=== PATIENT | male | born 1980 | race Caucasian/White ===

== ENCOUNTER 2017-06-30 08:50 | Emergency (ER) | payer MEDICARE, OTHER ==
[2017-06-30 08:56] VITALS: BP 132/75; PULSE 87; RESP 18; TEMP 97.3
[2017-06-30] MEDS ORDERED: CYCLOBENZAPRINE 10 MG TAB PO STA (09:10)
[2017-06-30] MEDS ORDERED: traMADol 50 MG TAB PO STA (09:12)
--- NOTE | 2017-06-30 09:12 | ED ---
Back Pain HPI - General Chief Complaint: Back Pain/Injury Stated Complaint: Back pain Time Seen by Provider: 06/30/17 08:57 Source: patient, RN notes reviewed Limitations: no limitations - History of Present Illness Initial Comments: 37-year-old male presents emergency Department chief complaint of right-sided back pain. Patient states started a few days ago and has not improved. He has not tried any [id number] medications. He states that he is ALLERGIC to ibuprofen. Patient has not tried any Tylenol. Denies any bowel incontinence or bladder retention. Patient denies any lower extremity paresthesias. Patient has had some pain and rates on his right leg occasionally with no paresthesias. Patient does have a history of chronic pain and uses see Dr. Gongora in [place] was on [place], Suboxone. Patient denies any dysuria, hematuria, abdominal pain or any flank pain. - Related Data Previous Rx's Medication Instructions Recorded Cyclobenzaprine [Flexeril] 10 mg PO TID PRN #15 tab 06/30/17 predniSONE 50 mg PO DAILY #5 tab 06/30/17 traMADol HCl [Ultram] 50 mg PO Q6H PRN #14 tab 06/30/17 Allergies Allergy/AdvReac Type Severity Reaction Status Date / Time ibuprofen [From Motrin] Allergy Rash/Hives Verified 06/30/17 08:56 Penicillins Allergy Unknown Verified 06/30/17 08:56 Childhood Review of Systems ROS Statement: Those systems with pertinent positive or pertinent negative responses have been documented in the HPI. ROS Other: All systems not noted in ROS Statement are negative. Past Medical History Past Medical History: No Reported History History of Any Multi-Drug Resistant Organisms: None Reported Past Surgical History: Appendectomy, Orthopedic Surgery, Tonsillectomy Additional Past Surgical History / Comment(s): leg Past Psychological History: No Psychological Hx Reported Smoking Status: Current every day smoker Past Alcohol Use History: None Reported Past Drug Use History: Marijuana General Exam Limitations: no limitations General appearance: alert, in no apparent distress Head exam: Present: atraumatic, normocephalic, normal inspection Respiratory exam: Present: normal lung sounds bilaterally. Absent: respiratory distress, wheezes, rales, rhonchi, stridor Cardiovascular Exam: Present: regular rate, normal rhythm, normal heart sounds. Absent: systolic murmur, diastolic murmur, rubs, gallop, clicks GI/Abdominal exam: Present: soft, normal bowel sounds. Absent: distended, tenderness, guarding, rebound, rigid Extremities exam: Present: other (Lower extremity strength equal bilaterally, neurovascular intact with pedal pulses equal bilaterally) Back exam: Present: full ROM (Mild discomfort), tenderness (Right low back), paraspinal tenderness, other (Pain with right straight leg raise). Absent: CVA tenderness (R), CVA tenderness (L), vertebral tenderness Neurological exam: Present: alert, oriented X3, CN II-XII intact, reflexes normal. Absent: motor sensory deficit Skin exam: Present: warm, dry, intact, normal color. Absent: rash Course Vital Signs 06/30/17 08:53 Temperature 97.3 F L Pulse Rate 87 Respiratory 18 Rate Blood Pressure 132/75 O2 Sat by Pulse 98 Oximetry Medical Decision Making - Medical Decision Making 37-year-old male presented for low back pain. Patient has lumbar radiculopathy /sciatica. Patient will be given prednisone, Flexeril and tramadol. I did perform a MAPS on this patient which showed that he is on chronic pain medications up until february. he used to be on norco most recently has not had that filled since february. patient advised follow-up with his old primary care physician or new primary care physician. patient will not be given norco in the emergency department. patient understands this. patient does not have any red flag symptoms. he agrees to follow-up. Disposition Clinical Impression: Sciatica Disposition: HOME SELF-CARE Condition: Stable Instructions: Acute Low Back Pain (ED) Additional Instructions: Please return to the Emergency Department if symptoms worsen or any other concerns. Prescriptions: Cyclobenzaprine [Flexeril] 10 mg PO TID PRN #15 tab PRN Reason: Muscle Spasm predniSONE 50 mg PO DAILY #5 tab traMADol HCl [Ultram] 50 mg PO Q6H PRN #14 tab PRN Reason: Pain Referrals: Jewel Martin MD [REFERRING] - 1-2 days Time of Disposition: 09:11
== END 2017-06-30 09:26 | disposition home or self-care (01) ==
LOC: EC 08:50
DX: M54.41 Lumbago with sciatica, right side (principal); F17.200 Nicotine dependence, unspecified, uncomplicated; Z88.6 Allergy status to analgesic agent; Z88.0 Allergy status to penicillin; Z98.890 Other specified postprocedural states
CPT/HCPCS: 99283

== ENCOUNTER → 2017-07-11 | Outpatient (CLI) | payer MEDICARE, OTHER ==
--- NOTE | 2017-07-11 09:01 | XR ---
EXAMINATION TYPE: XR lumbar spine 2 or 3V DATE OF EXAM: 07/11/2017 COMPARISON: NONE HISTORY: 37-year-old male with back pain weeks TECHNIQUE: 3 views FINDINGS: Transitional lumbosacral segment is noted is S1. Minimal scattered endplate spondylosis suc h as a L3-L4. Vertebral body heights are preserved and alignment is maintained. Some mild disc space narrowing in the visualized lower thoracic spine as well. IMPRESSION: No vertebral compression collapse or malalignment. Scattered mild degenerative disc disease.
== END | disposition home or self-care (01) ==
LOC: RADXRMAIN 08:33
PROVIDERS: ATTEND Registered Nurse
DX: M51.36 Other intervertebral disc degeneration, lumbar region (principal)
CPT/HCPCS: 72100

== ENCOUNTER 2018-01-02 19:00 | Emergency (ER) | payer MEDICARE, OTHER ==
[2018-01-02] MEDS ORDERED: ONDANSETRON ODT 8 MG TAB.RAPDIS PO STA (20:32)
[2018-01-02] MEDS ORDERED: SODIUM CHLORIDE 0.9% 1,000 ML IV STA (20:32)
[2018-01-02] MEDS ORDERED: DICYCLOMINE 10 MG/ML 2 ML AMP IM STA (20:32)
--- NOTE | 2018-01-02 20:41 | ED ---
Abdominal Pain HPI - General Chief Complaint: Abdominal Pain Stated Complaint: abd pain Time Seen by Provider: 01/02/18 20:23 Source: patient Mode of arrival: ambulatory Limitations: no limitations - History of Present Illness Initial Comments: Edmundo is a 37-year-old gentleman who presents the emergency department today via private vehicle for evaluation of 8 days of abdominal pain. Patient reports that he has had abdominal pain intermittently throughout his life. He does report that he is admitted to the hospital once for a bowel obstruction, he does state that he had an exploratory laparoscopy but that his obstruction resolved and there was no bowel removal at that time. Patient reports that he has never followed with GI or had an endoscopy or colonoscopy. Patient reports that over the past 8 days he's had progressively worsening nausea, heartburn and abdominal discomfort. Comfort is diffuse throughout his abdomen, worse with eating or having a bowel movement or elevation. Pain is associated with nausea, decreased appetite but no vomiting or diarrhea. He reports that his bowel movements have been firm and painful to have bowel movements. He reports that he is drinks 4 bottles of Pepto-Bismol in the past 8 days. - Related Data Home Medications Medication Instructions Recorded Confirmed Acetaminophen [Tylenol] 1,000 mg PO Q4-6H PRN 01/02/18 01/02/18 Buprenorphine HCl [Subutex] 8 mg SL BID 01/02/18 01/02/18 Previous Rx's Medication Instructions Recorded Pantoprazole Sodium [Protonix] 20 mg PO BID #30 tablet. 01/02/18 Sucralfate [Carafate] 1 gm PO ACHS #1 bottle 01/02/18 Allergies Allergy/AdvReac Type Severity Reaction Status Date / Time ibuprofen [From Motrin] Allergy Rash/Hives Verified 01/02/18 20:52 Penicillins Allergy Unknown Verified 01/02/18 20:52 Childhood haloperidol [From Haldol] AdvReac Unknown Verified 01/02/18 20:52 Review of Systems ROS Statement: Those systems with pertinent positive or pertinent negative responses have been documented in the HPI. ROS Other: All systems not noted in ROS Statement are negative. Past Medical History Past Medical History: No Reported History Additional Past Medical History / Comment(s): SBO History of Any Multi-Drug Resistant Organisms: None Reported Past Surgical History: Appendectomy, Orthopedic Surgery, Tonsillectomy Additional Past Surgical History / Comment(s): leg, Ex-Lap for SBO Past Psychological History: No Psychological Hx Reported Smoking Status: Current every day smoker Past Alcohol Use History: None Reported Past Drug Use History: Marijuana General Exam - General Exam Comments Initial Comments: GENERAL: Patient is well-developed and well-nourished. Appears dehydrated HENT: Normocephalic, Atraumatic. Neck is soft and supple. No significant lymphadenopathy is noted. Oropharynx is clear. Moist mucous membranes. Neck has full range of motion without eliciting any pain. EYES: The sclera were anicteric and conjunctiva were pink and moist. Extraocular movements were intact and pupils were equal round and reactive to light. Eyelids were unremarkable. PULMONARY: Unlabored respirations. Good breath sounds bilaterally. No audible rales rhonchi or wheezing was noted. CARDIOVASCULAR: There is a regular rate and rhythm without any murmurs gallops or rubs. ABDOMEN: Soft Mild tenderness to palpation diffusely, no guarding, not peritoneal SKIN: Skin is clear with no lesions or rashes and otherwise unremarkable. NEUROLOGIC: Patient is alert and oriented x3. Cranial nerves II through XII are grossly intact. Motor and sensory are also intact. Normal speech, volume and content. Symmetrical smile. MUSCULOSKELETAL: Normal extremities with adequate strength and full range of motion. No lower extremity swelling or edema. No calf tenderness. LYMPHATICS: No significant lymphadenopathy is noted PSYCHIATRIC: Normal psychiatric evaluation. Limitations: no limitations Limitations: no limitations Course Vital Signs 01/02/18 19:16 Temperature 98.5 F Pulse Rate 94 Respiratory 16 Rate Blood Pressure 125/75 O2 Sat by Pulse 93 L Oximetry - Reevaluation(s) Reevaluation #1: The patient was reevaluated, patient was sleeping and had to be woken to discuss results he reports no improvement in his abdominal pain and states he feels that he needs Ultram or pain pill for his pain 01/02/18 22:23 Medical Decision Making - Medical Decision Making The patient was seen and evaluated, history was obtained from the patient patient with a history of appendectomy in the past, small bowel obstruction with an exploratory laparoscopy in the past, also been told he has diverticulosis presenting with 8 days of abdominal pain, nausea, acid reflux like symptoms, constipation Labs and imaging were ordered Zofran, Bentyl and IV fluids were ordered Labs with no significant abnormalities CT scan with no significant abnormalities Patient was reevaluated after workup, patient was sleeping. I woke the patient up and discussed his results with him. I advised the patient that he needs to start taking a PPI and Carafate and follow up with GI. Patient reports he's been told multiple times the past and he needs to be evaluated by GI but never has. At this time the patient is agreeable to follow up with gastroenterology. Resting a prescription for Ultram for his chronic abdominal pain. I advised him that because one of his complaints is constipation that I do not feel Ultram would benefit him and instead recommended the PPI, Carafate, hydration and dietary modification. All questions pertaining to care were answered to the best of my ability and the patient was discharged home in stable condition. - Lab Data Result diagrams: 01/02/18 20:55 01/02/18 21:07 Lab Results 01/02/18 01/02/18 01/02/18 Range/Units 20:55 21:07 21:07 WBC 8.9 (3.8-10.6) k/uL RBC 5.15 (4.30-5.90) m/uL Hgb 15.6 (13.0-17.5) gm/dL Hct 45.4 (39.0-53.0) % MCV 88.3 (80.0-100.0) fL MCH 30.3 (25.0-35.0) pg MCHC 34.3 (31.0-37.0) g/dL RDW 13.0 (11.5-15.5) % Plt Count 234 (150-450) k/uL Neutrophils % 65 % Lymphocytes % 28 % Monocytes % 4 % Eosinophils % 2 % Basophils % 0 % Neutrophils # 5.8 (1.3-7.7) k/uL Lymphocytes # 2.5 (1.0-4.8) k/uL Monocytes # 0.3 (0-1.0) k/uL Eosinophils # 0.1 (0-0.7) k/uL Basophils # 0.0 (0-0.2) k/uL Sodium 139 (137-145) mmol/L Potassium 4.3 (3.5-5.1) mmol/L Chloride 105 (98-107) mmol/L Carbon Dioxide 26 (22-30) mmol/L Anion Gap 8 mmol/L BUN 9 (9-20) mg/dL Creatinine 0.62 L (0.66-1.25) mg/dL Est GFR (CKD-EPI)AfAm >90 (>60 ml/min/1.73 sqM) Est GFR (CKD-EPI)NonAf >90 (>60 ml/min/1.73 sqM) Glucose 95 (74-99) mg/dL Calcium 9.8 (8.4-10.2) mg/dL Total Bilirubin 0.3 (0.2-1.3) mg/dL AST 27 (17-59) U/L ALT 21 (21-72) U/L Alkaline Phosphatase 74 (38-126) U/L Total Protein 7.6 (6.3-8.2) g/dL Albumin 4.4 (3.5-5.0) g/dL Lipase 24 (23-300) U/L Urine Color Light Yellow Urine Appearance Clear (Clear) Urine pH 7.0 (5.0-8.0) Ur Specific [place] 1.008 (1.001-1.035) Urine Protein Negative (Negative) Urine Glucose (UA) Negative (Negative) Urine Ketones Negative (Negative) Urine Blood Negative (Negative) Urine Nitrite Negative (Negative) Urine Bilirubin Negative (Negative) Urine Urobilinogen <2.0 (<2.0) mg/dL Ur Leukocyte Esterase Negative (Negative) Disposition Clinical Impression: Abdominal pain Disposition: HOME SELF-CARE Instructions: Abdominal Pain (ED) Prescriptions: Pantoprazole Sodium [Protonix] 20 mg PO BID #30 tablet. Sucralfate [Carafate] 1 gm PO ACHS #1 bottle Is patient prescribed a controlled substance at d/c from ED?: No Referrals: Gonzales Chamberlain MD [Primary Care Provider] - 1-2 days Coral Velazquez MD [STAFF PHYSICIAN] - 1-2 days
[2018-01-02 21:23] LABS: Basophils % (A) 0 %; Eosinophils # (A) 0.1 k/uL (0-0.7); Eosinophils % (A) 2 %; HCT 45.4 % (39.0-53.0); HGB 15.6 gm/dL (13.0-17.5); Lymphocytes # (A) 2.5 k/uL (1.0-4.8); Lymphocytes % (A) 28 %; MCH 30.3 pg (25.0-35.0); MCHC 34.3 g/dL (31.0-37.0); MCV 88.3 fL (80.0-100.0); Mean Platelet Volume 6.9; Monocytes # (A) 0.3 k/uL (0-1.0); Monocytes % (A) 4 %; Neutrophils # (A) 5.8 k/uL (1.3-7.7); Neutrophils % (A) 65 %; Platelet Count 234 k/uL (150-450); RBC 5.15 m/uL (4.30-5.90); WBC 8.9 k/uL (3.8-10.6)
[2018-01-02 21:23] LABS: Appearance,Urine Clear (Clear); Bilirubin,Urine Negative (Negative); Blood,Urine Negative (Negative); Color,Urine Light Yellow; Glucose,Urine (UA) Negative (Negative); Ketones,Urine Negative (Negative); Leukocyte Esterase,Urine Negative (Negative); Nitrite,Urine Negative (Negative); Protein,Urine Negative (Negative); Specific Gravity,Urine 1.008 (1.001-1.035); Urobilinogen,Urine <2.0 mg/dL (<2.0)
[2018-01-02 21:31] LABS: ALT 21 U/L (21-72); AST 27 U/L (17-59); Albumin 4.4 g/dL (3.5-5.0); Alkaline Phosphatase 74 U/L (38-126); Anion Gap 8 mmol/L; Blood Urea Nitrogen 9 mg/dL (9-20); Calcium 9.8 mg/dL (8.4-10.2); Carbon Dioxide 26 mmol/L (22-30); Chloride 105 mmol/L (98-107); Glucose 95 mg/dL (74-99); Lipase 24 U/L (23-300); Potassium 4.3 mmol/L (3.5-5.1); Sodium 139 mmol/L (137-145); Total Bilirubin 0.3 mg/dL (0.2-1.3); Total Protein 7.6 g/dL (6.3-8.2)
--- NOTE | 2018-01-02 21:53 | CT ---
EXAMINATION TYPE: CT abdomen pelvis w con DATE OF EXAM: 01/02/2018 COMPARISON: HISTORY: abdominal pain and constipation X [address] DLP: 1259.9 mGycm Automated exposure control for dose reduction was used. TECHNIQUE: Helical acquisition of images was performed from the lung bases through the pelvis. CONTRAST: Performed without Oral Contrast and with IV Contrast, patient injected with 100 mL of Isovue 300. FINDINGS: Lung bases are clear. There is no pleural effusion. There is subsegmental atelectasis at the right vincent ng base. There is no pericardial effusion. Heart size is normal. Liver spleen pancreas gallbladder appear normal. Bile ducts are not dilated. There is no adrenal mass . Kidneys show satisfactory contrast opacification. There is no hydronephrosis. There is no retroperi toneal adenopathy or edema. There is no mesenteric adenopathy or edema. Ureters are not dilated. Bladder distends smoothly. I see no intestinal wall thickening. There are no dilated loops. Appendix is not definitely seen. There is no sign of appendicitis. There is no ascites or free air. There is no inguinal hernia. The lumbar spine is intact. Bony pelvis is intact. IMPRESSION: MILD SUBSEGMENTAL ATELECTASIS AT THE RIGHT LUNG BASE. NO SIGN OF ACUTE ABDOMEN AND PELVIS. NO EVIDENC E OF CONSTIPATION. I DO NOT SEE A CAUSE FOR ABDOMINAL PAIN.
[2018-01-02 22:47] VITALS: BP 186/97; PULSE 74; RESP 18; TEMP 97.8
== END 2018-01-02 22:47 | disposition home or self-care (01) ==
LOC: EC 19:00
DX: R10.84 Generalized abdominal pain (principal); E86.0 Dehydration; K59.00 Constipation, unspecified; R11.0 Nausea; R12 Heartburn; R63.8 Other symptoms and signs concerning food and fluid intake; F17.200 Nicotine dependence, unspecified, uncomplicated; Z88.0 Allergy status to penicillin; Z88.6 Allergy status to analgesic agent; Z88.8 Allergy status to other drugs, medicaments and biological substances; Z79.899 Other long term (current) drug therapy; Z90.49 Acquired absence of other specified parts of digestive tract; Z53.20 Procedure and treatment not carried out because of patient's decision for unspecified reasons
CPT/HCPCS: 36415; 80053; 83690; 85025; 81003; 74177; 99284; 96360; 96361; Q9967

== ENCOUNTER 2018-09-02 16:10 | Inpatient (IN) | payer MEDICARE, OTHER ==
[2018-09-02] MEDS ORDERED: ONDANSETRON 4 MG/2 ML VIAL IVP STA (16:34)
[2018-09-02] MEDS ORDERED: MORPHINE SULFATE 2 MG/ML SYRINGE IVP STA (16:34)
[2018-09-02] MEDS ORDERED: HEPARIN SODIUM,PORCINE 5,000 UNIT/ML 1 ML VIAL IV PRN (16:40)
[2018-09-02] MEDS ORDERED: HEPARIN SODIUM,PORCINE 5,000 UNIT/ML 1 ML VIAL IV ONE (16:40)
[2018-09-02] MEDS: NITROGLYCERIN SL TABS 0.4 MG TAB SUBLINGUAL STA (16:43)
[2018-09-02] MEDS ORDERED: HEPARIN SOD,PORK IN 0.45% NACL 25,000 UNIT in 0.45% NACL 1 250ML.BAG IV SCH (16:45)
[2018-09-02] MEDS ORDERED: ATORVASTATIN 80 MG TAB PO STA (16:46)
[2018-09-02] MEDS ORDERED: METOPROLOL TARTRATE 25 MG TAB PO STA (16:46)
[2018-09-02] MEDS ORDERED: NALOXONE 0.4 MG/ML 1 ML VIAL IV PRN (16:49)
--- NOTE | 2018-09-02 16:55 | ED ---
General Adult HPI - General Chief complaint: Chest Pain Stated complaint: CHEST PAIN Time Seen by Provider: 09/02/18 16:21 Source: patient, RN notes reviewed, old records reviewed Mode of arrival: EMS Limitations: no limitations - History of Present Illness Initial comments: 48-year-old male presenting with one hour history of substernal chest pain. Owen valenzuela is a poor historian, flat affect. He does admit to radiation to his right jaw. No back pain. Pain was significant and severe at the time of onset. Pain began at rest. Patient has no personal history of CAD. He has a smoker. He has family history of coronary artery disease. He is a nondiabetic. No history of hypertension. Patient states he had some nausea and indigestion associated with his symptoms. - Related Data Home Medications Medication Instructions Recorded Confirmed Buprenorphine HCl [Subutex] 8 mg SL BID 01/02/18 09/02/18 Famotidine [Pepcid] 20 mg PO DAILY 09/02/18 09/02/18 PARoxetine HCL [Paxil] 40 mg PO DAILY 09/02/18 09/02/18 Allergies Allergy/AdvReac Type Severity Reaction Status Date / Time ibuprofen [From Motrin] Allergy Rash/Hives Verified 09/02/18 16:56 Penicillins Allergy Unknown Verified 09/02/18 16:56 Childhood haloperidol [From Haldol] AdvReac Unknown Verified 09/02/18 16:56 Review of Systems ROS Statement: Those systems with pertinent positive or pertinent negative responses have been documented in the HPI. ROS Other: All systems not noted in ROS Statement are negative. Past Medical History Past Medical History: No Reported History Additional Past Medical History / Comment(s): SBO History of Any Multi-Drug Resistant Organisms: None Reported Past Surgical History: Appendectomy, Orthopedic Surgery, Tonsillectomy Additional Past Surgical History / Comment(s): leg, Ex-Lap for SBO Past Psychological History: No Psychological Hx Reported Smoking Status: Current every day smoker Past Alcohol Use History: None Reported Past Drug Use History: Marijuana General Exam Limitations: no limitations General appearance: lethargic Head exam: Present: atraumatic, normocephalic Eye exam: Present: normal appearance ENT exam: Present: normal exam Neck exam: Present: normal inspection. Absent: tenderness, meningismus Respiratory exam: Present: normal lung sounds bilaterally. Absent: respiratory distress Cardiovascular Exam: Present: regular rate, normal rhythm GI/Abdominal exam: Present: soft. Absent: distended, tenderness Extremities exam: Present: normal inspection, normal capillary refill. 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 Ramirez , will evaluate the patient in the emergency department. Likely urgent heart catheterization. EKG Findings - EKG Comments: EKG Findings:: EKG: Normal sinus rhythm, ST segment depression and T-wave inv ersion throughout the precordial leads. No ST segment elevation. Rate of 96, IA interval 128, QRS duration 102, QTC 444 Medical Decision Making - Medical Decision Making 38-year-old male with anterior chest pain. Pain is typical features. Initial evaluation patient is pale and looks unwell. He is stable vital signs. EKG is concerning with ST segment depression and T-wave inversions in the precordial leads. I did discuss case Is cardiology. He was given aspirin, Lipitor, nitroglycerin, morphine, and initiated on heparin. He will be taken urgently to the [facility] for heart catheterization. Case discussed with the admitting physician Dr. Chicas. - Lab Data Result diagrams: 09/02/18 16:47 09/02/18 16:47 Lab Results 09/02/18 09/02/18 09/02/18 Range/Units 16:47 16:47 16:47 WBC 7.7 (3.8-10.6) k/uL RBC 5.25 (4.30-5.90) m/uL Hgb 16.1 (13.0-17.5) gm/dL Hct 46.3 (39.0-53.0) % MCV 88.2 (80.0-100.0) fL MCH 30.6 (25.0-35.0) pg MCHC 34.7 (31.0-37.0) g/dL RDW 13.4 (11.5-15.5) % Plt Count 272 (150-450) k/uL Neutrophils % 48 % Lymphocytes % 43 % Monocytes % 3 % Eosinophils % 3 % Basophils % 1 % Neutrophils # 3.7 (1.3-7.7) k/uL Lymphocytes # 3.3 (1.0-4.8) k/uL Monocytes # 0.2 (0-1.0) k/uL Eosinophils # 0.3 (0-0.7) k/uL Basophils # 0.1 (0-0.2) k/uL PT 9.8 (9.0-12.0) sec INR 0.9 (<1.2) APTT 27.2 (22.0-30.0) sec Sodium 140 (137-145) mmol/L Potassium 3.7 (3.5-5.1) mmol/L Chloride 103 (98-107) mmol/L Carbon Dioxide 28 (22-30) mmol/L Anion Gap 9 mmol/L BUN 14 (9-20) mg/dL Creatinine 0.72 (0.66-1.25) mg/dL Est GFR (CKD-EPI)AfAm >90 (>60 ml/min/1.73 sqM) Est GFR (CKD-EPI)NonAf >90 (>60 ml/min/1.73 sqM) Glucose 108 H (74-99) mg/dL Calcium 9.7 (8.4-10.2) mg/dL Magnesium 1.9 (1.6-2.3) mg/dL Total Bilirubin 0.3 (0.2-1.3) mg/dL AST 18 (17-59) U/L ALT 15 L (21-72) U/L Alkaline Phosphatase 116 (38-126) U/L Total Protein 7.9 (6.3-8.2) g/dL Albumin 4.6 (3.5-5.0) g/dL Lipase 19 L (23-300) U/L Critical Care Time Critical Care Time: Yes Total Critical Care Time: 35 Disposition Clinical Impression: Chest pain, Unstable angina pectoris Disposition: ADMITTED IP TO THIS [facility] Condition: Serious Is patient prescribed a controlled substance at d/c from ED?: No Referrals: Gonzales Chamberlain MD [Primary Care Provider] - 1-2 days Decision to Admit Reason: Admit from EC Decision Date: 09/02/18 Decision Time: 17:15
[2018-09-02 16:59] LABS: Basophils # (A) 0.1 k/uL (0-0.2); Basophils % (A) 1 %; Eosinophils # (A) 0.3 k/uL (0-0.7); Eosinophils % (A) 3 %; HCT 46.3 % (39.0-53.0); HGB 16.1 gm/dL (13.0-17.5); Lymphocytes # (A) 3.3 k/uL (1.0-4.8); Lymphocytes % (A) 43 %; MCH 30.6 pg (25.0-35.0); MCHC 34.7 g/dL (31.0-37.0); MCV 88.2 fL (80.0-100.0); Mean Platelet Volume 6.8; Monocytes # (A) 0.2 k/uL (0-1.0); Monocytes % (A) 3 %; Neutrophils # (A) 3.7 k/uL (1.3-7.7); Neutrophils % (A) 48 %; Platelet Count 272 k/uL (150-450); RBC 5.25 m/uL (4.30-5.90); RDW 13.4 % (11.5-15.5); WBC 7.7 k/uL (3.8-10.6)
[2018-09-02] MEDS: SODIUM CHLORIDE 0.9% 1,000 ML IV SCH (17:05)
[2018-09-02 17:10] LABS: ALT 15 U/L (21-72); AST 18 U/L (17-59); African American GFR (CKD) >90 (>60 ml/min/1.73 sqM); Albumin 4.6 g/dL (3.5-5.0); Alkaline Phosphatase 116 U/L (38-126); Anion Gap 9 mmol/L; Blood Urea Nitrogen 14 mg/dL (9-20); Calcium 9.7 mg/dL (8.4-10.2); Carbon Dioxide 28 mmol/L (22-30); Chloride 103 mmol/L (98-107); Glucose 108 mg/dL (74-99); Lipase 19 U/L (23-300); Magnesium 1.9 mg/dL (1.6-2.3); Potassium 3.7 mmol/L (3.5-5.1); Sodium 140 mmol/L (137-145); Total Bilirubin 0.3 mg/dL (0.2-1.3); Total Protein 7.9 g/dL (6.3-8.2)
[2018-09-02 17:11] LABS: INR 0.9 (<1.2); Partial Thromboplastin Time 27.2 sec (22.0-30.0); Prothrombin Time 9.8 sec (9.0-12.0)
[2018-09-02] MEDS ORDERED: SODIUM CHLORIDE 0.9% 1,000 ML IV ONE (17:27)
--- NOTE | 2018-09-02 17:31 | P.CRDCN ---
History of Present Illness History of present illness: Dr. Brooks dictating the cardiac consultation the patient and her mother ms 38-year-old male patient who presented to the emergency room complaining of heaviness and pressure in the left chest that started about 1:30 PM this afternoon Since this morning the patient has not felt well. He took the trash out and 39 was almost short of breath than usual About 1:30 was sitting watching television when he started experiencing discomfort in his chest. This was quite uncomfortable sensation, with pressure and heaviness and sweatiness No dizziness no palpitations no loss of consciousness He has never experienced such symptoms before Past medical history none. Diabetes hypertension no known dyslipidemia Social history. He is a current smoker Home medications axilla Pepcid andsubutex Review of systems: No fever chills or rigors, no cough, phlegm or expectoration, no nausea, vomiting or diarrhea, no hematuria, dysuria, no musculoskeletal complaints, no strokes or seizures, no skin lesions. He's had surgeries review some injuries in the past Family history: His father had heart disease that developed in his mid 50s. The patient's siblings are all normal no specific cardiac conditions known On examination he is resting comfortably in bed. After nitroglycerin he feels a lot better he is already received IV heparin aspirin statins and metoprolol by mouth Pulse rate in the 80s and 90s, afebrile 98.5F blood pressure 140/82 mmHg pulse ox 99% No JVD Abdomen is nontender soft 70s warm no edema Breath sounds are clear no rhonchi or crackles Heart sounds are normal normal S1 normal S2 no murmurs gallop or rub Twelve-lead ECG shows sinus rhythm with 0.[address] depression with T-wave inversions ACROSS the precordial leads No old ECG for comparison Labs are reviewed Hemoglobin 16.1, potassium 3.7, sodium 140, normal kidney function, normal renal function normal lipase Impression Chest discomfort that began at rest consistent with unstable angina Abnormal ECG with 0.[address] depression with T-wave inversions ACROSS THE PRECORDIAL LEADS, ACUTE CORONARY SYNDROME CHEST DISCOMFORT WAS ONGOING ALTHOUGH IT DID GET BETTER AFTER ADMINISTRATION OF NITROGLYCERIN CURRENT SMOKER NO OTHER RISK FACTORS FOR CORONARY ARTERY DISEASE SUGGEST TOX SCREEN LIPID PANEL CORONARY ANGIOGRAPHY TODAY AND I DISCUSSED THIS WITH DR. VILLALOBOS FURTHER MANAGEMENT THEREAFTER DISCUSSED WITH THE PATIENT IS AGREEABLE PLAN Past Medical History Past Medical History: No Reported History Additional Past Medical History / Comment(s): SBO History of Any Multi-Drug Resistant Organisms: None Reported Past Surgical History: Appendectomy, Orthopedic Surgery, Tonsillectomy Additional Past Surgical History / Comment(s): leg, Ex-Lap for SBO Past Psychological History: No Psychological Hx Reported Smoking Status: Current every day smoker Past Alcohol Use History: None Reported Past Drug Use History: Marijuana Medications and Allergies Home Medications Medication Instructions Recorded Confirmed Type Buprenorphine HCl [Subutex] 8 mg SL BID 01/02/18 09/02/18 History Famotidine [Pepcid] 20 mg PO DAILY 09/02/18 09/02/18 History PARoxetine HCL [Paxil] 40 mg PO DAILY 09/02/18 09/02/18 History Allergies Allergy/AdvReac Type Severity Reaction Status Date / Time ibuprofen [From Motrin] Allergy Rash/Hives Verified 09/02/18 16:56 Penicillins Allergy Unknown Verified 09/02/18 16:56 Childhood haloperidol [From Haldol] AdvReac Unknown Verified 09/02/18 16:56 Physical Exam Vitals: Vital Signs Temp Pulse Pulse Resp BP Pulse Ox 09/02/18 16:25 95 09/02/18 16:14 98.5 F 95 16 140/82 99 Intake and Output 09/02/18 09/02/18 09/02/18 06:59 14:59 22:59 Other: Weight 95.254 kg Results 09/02/18 16:47 09/02/18 16:47 Cardiac Enzymes 09/02/18 09/02/18 Range/Units 16:47 16:47 AST 18 (17-59) U/L Troponin I <0.012 (0.000-0.034) ng/mL Coagulation 09/02/18 Range/Units 16:47 PT 9.8 (9.0-12.0) sec APTT 27.2 (22.0-30.0) sec CBC 09/02/18 Range/Units 16:47 WBC 7.7 (3.8-10.6) k/uL RBC 5.25 (4.30-5.90) m/uL Hgb 16.1 (13.0-17.5) gm/dL Hct 46.3 (39.0-53.0) % Plt Count 272 (150-450) k/uL Comprehensive Metabolic Panel 09/02/18 Range/Units 16:47 Sodium 140 (137-145) mmol/L Potassium 3.7 (3.5-5.1) mmol/L Chloride 103 (98-107) mmol/L Carbon Dioxide 28 (22-30) mmol/L BUN 14 (9-20) mg/dL Creatinine 0.72 (0.66-1.25) mg/dL Glucose 108 H (74-99) mg/dL Calcium 9.7 (8.4-10.2) mg/dL AST 18 (17-59) U/L ALT 15 L (21-72) U/L Alkaline Phosphatase 116 (38-126) U/L Total Protein 7.9 (6.3-8.2) g/dL Albumin 4.6 (3.5-5.0) g/dL Current Medications Generic Name Dose Route Start Last Admin Trade Name Freq PRN Reason Stop Dose Admin Heparin Sodium (Porcine) 0 unit 09/02/18 16:40 Heparin IV PER PROTOCOL PRN Low PTT Protocol Heparin Sodium/Sodium Chloride 250 mls @ 10 mls/hr 09/02/18 16:45 09/02/18 17:01 25,000 unit/ Sodium Chloride IV 10.498 units/kg/hr .Q24H JOSIE 10 mls/hr Administration Protocol 10.498 UNITS/KG/HR Sodium Chloride 1,000 mls @ 20 mls/hr 09/02/18 17:00 09/02/18 17:05 Saline 0.9% IV 20 mls/hr .Q24H JOSIE Administration Naloxone HCl 0.2 mg 09/02/18 16:49 Narcan IV Q2M PRN Opioid Reversal Intake and Output 09/02/18 09/02/18 09/02/18 06:59 14:59 22:59 Other: Weight 95.254 kg Patient Weight 09/03/18 06:59 Weight 95.254 kg 09/02/18 16:47 09/02/18 16:47
--- NOTE | 2018-09-02 17:34 | XR ---
EXAMINATION TYPE: XR chest 1V portable DATE OF EXAM: 09/02/2018 COMPARISON: NONE HISTORY: Chest pain TECHNIQUE: Single frontal view of the chest is obtained. FINDINGS: Heart and mediastinum are normal. Lungs are clear. Diaphragm is normal. There are chest le ads. IMPRESSION: Normal chest.
[2018-09-02] MEDS ORDERED: VERAPAMIL 2.5 MG/ML 2 ML AMP ONE (17:38)
[2018-09-02] MEDS ORDERED: LIDOCAINE 1% INJ 10MG/ML (20 ML MDV) ONE (17:38)
[2018-09-02] MEDS ORDERED: HEPARIN SODIUM 1,000 UN/ML (10ML VL) ONE (17:38)
[2018-09-02] MEDS ORDERED: MIDAZOLAM (PF) 2 MG/2 ML VIAL IV ONE ×2 (17:46→17:49)
[2018-09-02] MEDS ORDERED: LIDOCAINE 1% INJ 10MG/ML (20 ML MDV) SQ ONE (17:48)
[2018-09-02] MEDS ORDERED: HEPARIN SODIUM 1,000 UN/ML (10ML VL) IV ONE (17:50)
[2018-09-02] MEDS: VERAPAMIL SYRINGE (5 MG/10 ML) INTRAARTER ONE ×2 (17:50→17:59)
[2018-09-02] MEDS ORDERED: IOPAMIDOL-370 125ML BTL INJ ONE (17:59)
[2018-09-02 18:04] LABS: Cholesterol 300 mg/dL (<200); HDL Cholesterol 41 mg/dL (40-60)
[2018-09-02] MEDS ORDERED: RX INFO: IV CONTRAST WAS GIVEN 1 EACH MISC MISCELLANE PRN (18:04)
[2018-09-02 18:13] LABS: Triglycerides 744 mg/dL (<150)
[2018-09-02] MEDS ORDERED: SODIUM CHLORIDE 0.9% 1,000 ML IV SCH (18:15)
[2018-09-02] MEDS ORDERED: TEMAZEPAM 15 MG CAP PO PRN (22:47)
[2018-09-02] MEDS ORDERED: ALPRAZolam 0.25 MG TAB PO PRN (22:47)
[2018-09-02] MEDS ORDERED: CALCIUM CARBONATE 500 MG CHEWABLE PO PRN (23:19)
[2018-09-02 23:29] LABS: Appearance,Urine Clear (Clear); Bilirubin,Urine Negative (Negative); Blood,Urine Negative (Negative); Color,Urine Yellow; Glucose,Urine (UA) Negative (Negative); Ketones,Urine Negative (Negative); Leukocyte Esterase,Urine Negative (Negative); Nitrite,Urine Negative (Negative); PH, Urine 7.5 (5.0-8.0); Protein,Urine Negative (Negative)
[2018-09-02] MEDS: HYDROcodone/APAP 5-325MG 1 EACH TAB PO PRN (23:30)
[2018-09-02 23:40] LABS: Amphetamine Screen,Urine Not Detected (NotDetected); Barbiturate Screen,Urine Not Detected (NotDetected); Benzodiazepines Screen,Urine Detected (NotDetected); Cocaine Screen,Urine Not Detected (NotDetected); Methadone Screen, Urine Not Detected (NotDetected); Opiate Screen,Urine Detected (NotDetected); Oxycodone Screen, Urine Not Detected (NotDetected); Phencyclidine Screen,Urine Not Detected (NotDetected); Tricyclic Antidepressant,Urine Not Detected (NotDetected); Urn Cannabinoid Scrn Detected (NotDetected)
--- NOTE | 2018-09-03 00:53 | CC ---
CARDIAC CATHETERIZATION REPORT DATE OF SERVICE: September 02, 2018 PERFORMING PHYSICIAN: Jourdan Strauss MD, race car mechanic. PROCEDURE PERFORMED: Selective right and left coronary angiogram. INDICATION: This is a pleasant 38-year-old gentleman with history of smoking and significant family history of coronary artery disease, presented to the emergency room with chest discomfort and was seen by Dr. Ramirez. The patient continues to have chest discomfort and because of that, heart catheterization was advised. APPROACH: Right radial artery. COMPLICATION: None. LEVEL OF SEDATION: Moderate with sedation length of 15 minutes. PROCEDURE DESCRIPTION: After obtaining an informed consent, the patient was brought to cardiac lab aide. The right radial artery was cannulated using micropuncture technique and a micropuncture wire passed easily and a 6-Vincentian sheath in the right radial artery. After that, I did give the patient 2 mg of verapamil IA and 10,000 heparin IV. I did after that selective right and left coronary angiogram using JR4 and JL3.5 catheters. The left heart catheterization was performed using the JR4 catheter. The procedure was completed without any complication. SELECTIVE CORONARY ANGIOGRAM: 1. The right coronary artery is a large caliber vessel and is a dominant vessel, appeared to be angiographically normal. 2. The left main is angiographically normal. It bifurcates into the circumflex and left anterior descending artery left ramus intermedius. 3. The left circumflex is a large caliber vessel. It is a dominant vessel and appears to be angiographically normal. 4. The ramus intermedius is angiographically normal. 5. The LAD is angiographically normal as well. In the proximal portion gives rise into a diagonal branch which seems to be angiographically normal. 6. HEMODYNAMICS: The left ventricular end-diastolic pressure was 10 mmHg without significant gradient across the aortic valve. CONCLUSION: Normal coronary angiogram. POSTPROCEDURE MANAGEMENT: Medical treatment. MMODL / IJN: [id number] /
[2018-09-03 06:39] LABS: Basophils # (A) 0.1 k/uL (0-0.2); Basophils % (A) 1 %; Eosinophils # (A) 0.2 k/uL (0-0.7); Eosinophils % (A) 3 %; HCT 44.7 % (39.0-53.0); Lymphocytes # (A) 4.5 k/uL (1.0-4.8); Lymphocytes % (A) 54 %; MCH 29.7 pg (25.0-35.0); MCHC 33.5 g/dL (31.0-37.0); MCV 88.9 fL (80.0-100.0); Mean Platelet Volume 7.1; Monocytes # (A) 0.3 k/uL (0-1.0); Monocytes % (A) 4 %; Neutrophils # (A) 3.1 k/uL (1.3-7.7); Neutrophils % (A) 37 %; Platelet Count 252 k/uL (150-450); RBC 5.03 m/uL (4.30-5.90); RDW 15.2 % (11.5-15.5); WBC 8.3 k/uL (3.8-10.6)
--- NOTE | 2018-09-03 06:54 | HP ---
HISTORY AND PHYSICAL DATE OF SERVICE: 09/02/2018 CHIEF COMPLAINT: Chest pain. HISTORY OF PRESENT ILLNESS: This 38-year-old gentleman with a past medical history of multiple medical problems including small bowel obstruction, history of DJD, tonsillectomy, history of nicotine dependence being followed by Dr. Chamberlain in the outpatient setting was complaining of chest pain. The pain was felt in the anterior part of the chest which was sharp in character and also increasing with some respiration, and the patient came to [facility] and was admitted to the hospital for further evaluation and treatment. EKG showed diffuse T-wave inversions. Because of concerns of coronary disease, patient underwent cardiac catheterization which showed normal coronary arteries. Patient being closely monitored at this time. There is no history of fever, rigors or chills. No history of headache, loss of consciousness or seizures at this time. PAST MEDICAL HISTORY: History of small bowel obstruction, history of DJD, tonsillectomy, history of nicotine dependence. MEDICATIONS: Prior to admission include home medications are: 1. Paxil 40 mg p.o. daily. 2. Pepcid 20 mg p.o. daily. 3. Subutex 8 mg sublingual b.i.d. ALLERGIES: MOTRIN, PENICILLIN AND HALDOL. FAMILY HISTORY: History of chest pain, angina, heart disease in the family. SOCIAL HISTORY: History of smoking. No history of alcohol intake. REVIEW OF SYSTEMS: ENT: No diminished hearing. No diminished vision. CARDIOVASCULAR: As mentioned earlier. RESPIRATORY: As mentioned earlier. GI no nausea or vomiting. no dysuria. NERVOUS SYSTEM: No numbness or weakness. ALLERGY/IMMUNOLOGY: No asthma or hayfever. MUSCULOSKELETAL as mentioned earlier. HEMATOLOGY/ONCOLOGY: No history of anemia. ENDOCRINE: No history of diabetes or hypothyroidism. CONSTITUTIONAL: As mentioned earlier. DERMATOLOGY: Negative. RHEUMATOLOGY: Negative. PSYCHIATRY as mentioned earlier. PHYSICAL EXAMINATION: GENERAL: Alert and oriented times three. VITAL SIGNS: Pulse 75, blood pressure 105/60, respirations 16, temperature 98.3, pulse ox 98% on room air. HEENT: Conjunctivae normal. Oral mucosa moist. NECK is no jugular venous distention. No carotid bruit. No lymph node enlargement. CARDIOVASCULAR: S1, S2. No S3, no S4. RESPIRATORY: Breath sounds diminished in the bases. No rhonchi. No crackles. ABDOMEN: Soft, nontender. No mass palpable. LEGS: No edema. No swelling. NERVOUS SYSTEM: Higher functions as mentioned earlier, moves all four limbs. No focal motor or sensory deficits. LYMPHATICS: No lymph nodes palpable in the neck, axilla or groin. SKIN: No ulcers, rash or bleeding. JOINTS: No active deforming arthropathy. LAB STUDIES: WBC 7.2, hemoglobin 16.1, APTT is 27.2, and glucose 108. ALT is 14. Triglycerides 744 and cholesterol is 300. Lipase is 19. UA noted. Drug screen is positive for benzodiazepines, marijuana, and opiates. ASSESSMENT: 1. Chest pain possible acute pericarditis. 2. Negative cardiac catheterization with no evidence of coronary artery disease. 3. Hypertriglyceridemia. 4. Hypercholesterolemia. 5. History of small bowel obstruction. 6. History of tonsillectomy. 7. History of nicotine dependence. 8. History of THC. RECOMMENDATIONS AND DISCUSSION: This 38-year-old gentleman who presented with multiple complex medical issues, we will monitor the patient closely, continue the current medications, management and symptomatic treatment. Otherwise at this time, I recommend a 2D echo with Doppler. Closely follow with Cardiology. Resume the home medications. Other than that, I would also recommend Tricor and Lipitor and continued monitoring also. The prognosis guarded because of multiple complex medical conditions. Further recommendations to follow. Also recommend a sed rate and CRP also. Prognosis guarded. Discussed with the patient who understands and agrees. Further recommendations to follow. A copy of dictation being forwarded to Dr. Chamberlain who is the primary physician. MMODL / GEOVANIN: [id number] /
[2018-09-03 07:00] LABS: African American GFR (CKD) >90 (>60 ml/min/1.73 sqM); Anion Gap 6 mmol/L; Blood Urea Nitrogen 18 mg/dL (9-20); Calcium 9.3 mg/dL (8.4-10.2); Carbon Dioxide 27 mmol/L (22-30); Chloride 107 mmol/L (98-107); Glucose 100 mg/dL (74-99); Potassium 4.2 mmol/L (3.5-5.1); Sodium 140 mmol/L (137-145)
[2018-09-03] MEDS: PANTOPRAZOLE 40 MG TABLET PO SCH (07:00)
[2018-09-03 08:28] LABS: C Reactive Protein 16.3 mg/L (<10.0)
[2018-09-03] MEDS: FENOFIBRATE 160 MG TAB PO SCH (08:48)
[2018-09-03] MEDS: FAMOTIDINE 20 MG TAB PO SCH (08:48)
[2018-09-03] MEDS: NICOTINE 14MG/24HR PATCH TRANSDERM SCH (08:48)
[2018-09-03] MEDS: PARoxetine 20 MG TAB PO SCH (08:48)
[2018-09-03] MEDS: Buprenorphine Hcl [Subutex] 8 MG SL SCH ×2 (09:05→20:52)
[2018-09-03 09:56] LABS: Erythrocyte Sedimentation Rate 14 mm/hr (0-15)
[2018-09-03] MEDS: clonazePAM 0.5 MG TAB PO PRN (13:14)
--- NOTE | 2018-09-03 16:04 | P.PN ---
Subjective Progress Note Date: 09/03/18 This is a 38-year-old gentleman was admitted to the hospital with chest pain. Patient was evaluated by Dr. Ramirez. He recommended a cardiac catheterization. Dr. Johnson did a cardiac catheterization. Patient was not performed any significant obstructive disease. His puncture site is healing well in the right wrist. Radial pulses bounding. Lungs are clear. Heart is regular. Patient is being discharged home today. Follow-up with the Dr. Ramirez Objective - Vital Signs Vital signs: Vital Signs Temp 97.3 F L 09/03/18 11:34 Pulse 67 09/03/18 11:34 Resp 14 09/03/18 12:35 BP 110/73 09/03/18 11:34 Pulse Ox 97 09/03/18 11:34 Intake & Output 09/02/18 09/03/18 09/03/18 18:59 06:59 18:59 Intake Total 50 1675 480 Balance 50 1675 480 Weight 95.254 kg 96.1 kg Intake: IV 50 Intake, IV Titration 675 0 Amount Sodium Chloride 0.9% 1, 675 0 000 ml @ 75 mls/hr IV . [id number] [facility] Rx#:[id number] Oral 1000 480 Other: Voiding Method Toilet Toilet Urinal Urinal # Voids 2 2 - Exam GENERAL EXAM: Patient is alert and oriented and doesn't appear to be in any acute distress HEENT: Normocephalic. Normal reaction of pupils, equal size, normal range of extraocular motion. No erythema or exudates in the throat. NECK: No masses, no nuchal rigidity. CHEST: No chest wall deformity. LUNGS: Equal air entry with no crackles or wheeze. HEART: S1 and S2 normal with no audible mumurs or gallops. Regular rhythm, fe morals equal on both sides.. ABDOMEN: No hepatosplenomegaly, normal bowel sounds, no guarding or rigidity. SKIN: No rashes CENTRAL NERVOUS SYSTEM: No focal deficits. EXTREMITIES: No cyanosis, clubbing or edema. - Labs CBC & Chem 7: 09/03/18 05:34 09/03/18 05:34 Labs: Abnormal Lab Results - Last 24 Hours (Table) 09/02/18 09/02/18 09/02/18 Range/Units 16:47 16:47 23:00 Glucose 108 H (74-99) mg/dL ALT 15 L (21-72) U/L C-Reactive Protein (<10.0) mg/L Triglycerides 744 H (<150) mg/dL Cholesterol 300 H (<200) mg/dL Lipase 19 L (23-300) U/L Ur Specific [place] 1.040 H (1.001-1.035) Urine Opiates Screen Detected H (NotDetected) U Benzodiazepines Scrn Detected H (NotDetected) U Marijuana (THC) Screen Detected H (NotDetected) 09/03/18 Range/Units 05:34 Glucose 100 H (74-99) mg/dL ALT (21-72) U/L C-Reactive Protein 16.3 H (<10.0) mg/L Triglycerides (<150) mg/dL Cholesterol (<200) mg/dL Lipase (23-300) U/L Ur Specific [place] (1.001-1.035) Urine Opiates Screen (NotDetected) U Benzodiazepines Scrn (NotDetected) U Marijuana (THC) Screen (NotDetected) Assessment and Plan (1) Atypical chest pain Current Visit: Yes Status: Acute Code(s): R07.89 - OTHER CHEST PAIN SNOMED Code(s): 678455592 Plan: Patient is clinically stable. Could be discharged home. Follow-up as scheduled
[2018-09-03] MEDS: SODIUM CHLORIDE 0.9% 1,000 ML IV SCH (18:16)
--- NOTE | 2018-09-03 20:09 | PN ---
PROGRESS NOTE DATE OF SERVICE: 09/03/2018. This 38-year-old gentleman admitted with chest pain had negative cardiac catheterization. The patient still complains of chest discomfort and EKG showed diffuse T inversions. No chest pain or palpitations or fever. EXAM: Alert and oriented times three. Pulse 67, pressure 122/70, respiration 16, temperature 97.2, pulse ox 97% on room air. HEENT: Conjunctivae normal. NECK: No jugular venous distention. CARDIOVASCULAR: S1, S2 muffled. RESPIRATIONS: Breath sounds diminished in the bases. No rhonchi. No crackles. ABDOMEN is soft, nontender. LEGS are no edema, no swelling. CENTRAL NERVOUS SYSTEM: No focal deficits. LABS: CBC within normal limits and glucose 100. Triglycerides 744 and LDL is 300. Drug screen noted. ASSESSMENT: 1. Chest pain possible acute pericarditis. 2. Negative cardiac catheterization, no evidence of coronary artery disease. 3. Hypertriglyceridemia. 4. Hypocholesterolemia. 5. History of small bowel obstruction. History of tonsillectomy. 6. History of nicotine dependence. 7. History of THC. RECOMMENDATIONS AND DISCUSSION: Recommend to continue current medications, management and symptomatic treatment. Otherwise, apparently, there is no evidence of any coronary occlusion per cardiac cath report by Dr. Strauss. I would recommend follow closely with Cardiology and possible colchicine for the pericarditis. Otherwise, continue to monitor. Further recommendations to follow. MMODL / IJN: [id number] /
[2018-09-03] MEDS ORDERED: ATORVASTATIN 20 MG TAB PO SCH (21:00)
[2018-09-04] MEDS: clonazePAM 0.5 MG TAB PO PRN ×2 (02:53→12:05)
[2018-09-04] MEDS: NITROGLYCERIN SL TABS 0.4 MG TAB SUBLINGUAL STA (03:40)
[2018-09-04] MEDS: HYDROcodone/APAP 5-325MG 1 EACH TAB PO PRN (03:45)
[2018-09-04 06:16] LABS: Basophils % (A) 1 %; Eosinophils # (A) 0.3 k/uL (0-0.7); Eosinophils % (A) 3 %; HCT 43.3 % (39.0-53.0); HGB 14.9 gm/dL (13.0-17.5); Lymphocytes # (A) 4.2 k/uL (1.0-4.8); Lymphocytes % (A) 50 %; MCH 30.6 pg (25.0-35.0); MCHC 34.3 g/dL (31.0-37.0); MCV 89.1 fL (80.0-100.0); Mean Platelet Volume 6.5; Monocytes # (A) 0.3 k/uL (0-1.0); Monocytes % (A) 3 %; Neutrophils # (A) 3.4 k/uL (1.3-7.7); Neutrophils % (A) 41 %; Platelet Count 246 k/uL (150-450); RBC 4.86 m/uL (4.30-5.90); RDW 13.3 % (11.5-15.5); WBC 8.4 k/uL (3.8-10.6)
[2018-09-04] MEDS: PANTOPRAZOLE 40 MG TABLET PO SCH (06:19)
[2018-09-04 06:25] LABS: African American GFR (CKD) >90 (>60 ml/min/1.73 sqM); Anion Gap 8 mmol/L; Blood Urea Nitrogen 25 mg/dL (9-20); Calcium 9.5 mg/dL (8.4-10.2); Carbon Dioxide 26 mmol/L (22-30); Chloride 105 mmol/L (98-107); Glucose 100 mg/dL (74-99); Potassium 3.9 mmol/L (3.5-5.1); Sodium 139 mmol/L (137-145)
[2018-09-04] MEDS: FAMOTIDINE 20 MG TAB PO SCH (09:52)
[2018-09-04] MEDS: FENOFIBRATE 160 MG TAB PO SCH (09:52)
[2018-09-04] MEDS: NICOTINE 14MG/24HR PATCH TRANSDERM SCH (09:53)
[2018-09-04] MEDS: Buprenorphine Hcl [Subutex] 8 MG SL SCH (09:53)
[2018-09-04] MEDS: PARoxetine 20 MG TAB PO SCH (09:53)
--- NOTE | 2018-09-04 14:22 | P.PN ---
Subjective Principal diagnosis: This is a pleasant 58 years old male with no significant past medical history, he is current cigarette smoker about 1 pack per day and sometimes more since age 18, he denies alcohol or illicit tracts except he smokes marijuana occasionally. Patient presents with cardiac workup as he presents with chest pain, however her cardiac cath was normal. Patient other than that he feels anxious and his been complaining of from abdominal pain that comes only with bowel movement and released after he finishes bowel movement, this been going on for years. Cartilage team or so following the patient. He is hemodynamically stable. Labs are unremarkable for the CBC and BMP. Objective - Vital Signs Vital signs: Vital Signs Temp 98.3 F 09/04/18 12:00 Pulse 70 09/04/18 12:00 Resp 16 09/04/18 12:00 BP 127/86 09/04/18 12:00 Pulse Ox 98 09/04/18 12:00 Intake & Output 09/03/18 09/04/18 09/04/18 18:59 06:59 18:59 Intake Total 480 2240 714 Balance 480 2240 714 Weight 93.7 kg Intake: IV 30 Invasive Line 1 10 Invasive Line 2 20 Intake, IV Titration 0 Amount Sodium Chloride 0.9% 1, 0 000 ml @ 75 mls/hr IV . [id number] [facility] Rx#:[id number] Oral 480 2240 684 Other: Voiding Method Toilet Toilet Toilet Urinal Urinal Urinal # Voids 2 2 - Exam GENERAL: The patient is alert and oriented x3, not in any acute distress. Well developed, well nourished. HEENT: Pupils are round and equally reacting to light. EOMI. No scleral icterus. No conjunctival pallor. Normocephalic, atraumatic. No pharyngeal erythema. No thyromegaly. CARDIOVASCULAR: S1 and S2 present. No murmurs, rubs, or gallops. PULMONARY: Chest is clear to auscultation, no wheezing or crackles. ABDOMEN: Soft, nontender, nondistended, normoactive bowel sounds. No palpable organomegaly. MUSCULOSKELETAL: No joint swelling or deformity. EXTREMITIES: No cyanosis, clubbing, or pedal edema. NEUROLOGICAL: Gross neurological examination did not reveal any focal deficits. SKIN: No rashes. - Labs CBC & Chem 7: 09/04/18 05:47 09/04/18 05:47 Labs: Abnormal Lab Results - Last 24 Hours (Table) 09/04/18 Range/Units 05:47 BUN 25 H (9-20) mg/dL Glucose 100 H (74-99) mg/dL Assessment and Plan Assessment: Chest pain with normal cardiac cath. Nicotine dependence Some excess and pubis including marijuana Anxiety Plan: This is a pleasant 58 years old male who presents with chest pain was says is improving, patient has normal cardiac cath. With going to check d-dimer to rule out pulmonary source. Patient is currently mobile and he feels anxious. He has chronic abdominal complaints related to his bowel movement, possible irritable bowel syndrome versus other was can be checked as an outpatient. Patient was instructed to follow up with his PCP and Centrally just upon discharge and he agrees.Labs and medication were reviewed.. Continue same treatment. Continue with symptomatic treatment. Resume home medication. Monitor lytes and vitals. DVT and GI prophylaxis. Further recommendations of the clinical course of the patient DVT prophylaxis: Subcutaneous heparin GI Prophylaxis: PPI
--- NOTE | 2018-09-04 15:19 | P.PN ---
Subjective Progress Note Date: 09/04/18 This is a 38-year-old gentleman who presented to the hospital with symptoms of chest discomfort. He did undergo cardiac catheterization which did not reveal any significant obstructive coronary artery disease. He also had an echocardiogram with Doppler study performed which revealed a normal left ventricular systolic function. This afternoon it was requested that the patient have a d-dimer performed, came back negative. Hemodynamically he is stable. Objective - Vital Signs Vital signs: Vital Signs Temp 98.3 F 09/04/18 12:00 Pulse 70 09/04/18 12:00 Resp 16 09/04/18 12:00 BP 127/86 09/04/18 12:00 Pulse Ox 98 09/04/18 12:00 Intake & Output 09/03/18 09/04/18 09/04/18 18:59 06:59 18:59 Intake Total 480 2240 714 Balance 480 2240 714 Weight 93.7 kg Intake: IV 30 Invasive Line 1 10 Invasive Line 2 20 Intake, IV Titration 0 Amount Sodium Chloride 0.9% 1, 0 000 ml @ 75 mls/hr IV . [id number] [facility] Rx#:[id number] Oral 480 2240 684 Other: Voiding Method Toilet Toilet Toilet Urinal Urinal Urinal # Voids 2 2 - Exam PHYSICAL EXAMINATION: GENERAL:38-year-old gentleman in no acute distress at the time of my examination HEENT: Head is atraumatic, normocephalic. Pupils equal, round. Sclera anicteric. Conjunctiva are clear. Mucous membranes of the mouth are moist. Neck is supple. There is no elevated jugular venous pressure. No carotid bruit is heard. HEART EXAMINATION: [Heart S1, S2 normal. No murmur or gallop heard.] CHEST EXAMINATION:[ Lungs are clear to auscultation and precussion. No chest wall tenderness is noted on palpation or with deep breathing.] ABDOMEN: [ Soft, nontender. Bowel sounds are heard. No organomegaly noted]. EXTREMITIES:[ 2+ peripheral pulses with no evidence of peripheral edema and no calf tenderness noted]. NEUROLOGIC [patient is awake, alert and oriented 3.] . - Labs CBC & Chem 7: 09/04/18 05:47 09/04/18 05:47 Labs: Abnormal Lab Results - Last 24 Hours (Table) 09/04/18 Range/Units 05:47 BUN 25 H (9-20) mg/dL Glucose 100 H (74-99) mg/dL Assessment and Plan Plan: assessment and plan #1 chest pain, status post cardiac catheterization which was negative for any significant obstructive coronary artery disease #2 nicotine dependence #3 echocardiogram with Doppler study revealed a normal left ventricular systolic function. D-dimer negative. Plan Patient may be discharged home today from cardiology's perspective , He can follow-up with his primary care doctor on discharge. DNP note has been reviewed, I agree with a documented findings and plan of care. Patient was seen and examined.
[2018-09-04 15:23] VITALS: BP 111/69; PULSE 72; RESP 17; TEMP 98.2
--- NOTE | 2018-09-04 15:44 | P.DS ---
Providers Date of admission: 09/02/18 16:49 Attending physician: Aylin Chicas Consults: 09/02/18 16:50 Consult Physician Urgent Consulting Provider: Angel Ramirez Consult Reason/Comments: Chest pain, EKG changes Do you want consulting provider notified?: Yes Primary care physician: Gonzales Chamberlain [facility] Hospital Course: Diagnoses: Chest pain with normal cardiac cath. And negative d-dimer Hyperlipidemia Nicotine dependence Substance abuse including marijuana Anxiety Hospital course This is a pleasant 38 years old male who presents because of chest pain. He has no significant prior history. He is currently cigarette smoking about 1 pack per day. Uses marijuana occasionally but he denies other illicit tracts. Patient has been evaluated by cardiology team and they recommended cardiac cath, his cardiac cath came back normal. The patient also showed interval improvement with management and on the day of discharge patient denies chest pain as he says is 0/10 in severity, no dyspnea or nausea vomiting. No coughing. No change in urine or bowel habits. His vitals are stable. His CBC and BMP were unremarkable. His d-dimer came back negative at 0.19. Patient likely has pulmonary embolism especially patient is with no hypoxia or tachycardia on dorsum respiratory symptoms Patient complaining from chronic abdominal veins with bowel movements only, has been going on for years. Patient was instructed to follow up with [facility] as an outpatient and he agrees. Patient states he will call and make his own appointments. Patient also informed the medical team he wants to switch his PCP from Dr. Chamberlain to Dr. Bassett because of the driving distance, however they don't take his medical insurance of [employer] at the patient was instructed to follow up with his PCP in one week and he agrees. patient was cleared by cardiology team for discharge Problems and management plan were discussed with the patient and he verbalized understanding and acceptance Patient was found stable and can be discharged home however he needs follow-up as an outpatient Gen: patient is a AAOx3, no distress CVS: S1-S2, RRR, no murmur Lungs: B/L CTA, no wheezing Abdomen: soft, no distention, no tenderness, positive bowel sounds Extremity: no leg edema or induration Time spent more than 35 minutes Patient Condition at Discharge: Serious Plan - Discharge Summary Discharge Rx Participant: No New Discharge Prescriptions: New Atorvastatin [Lipitor] 20 mg PO HS #30 tab Fenofibrate [Lofibra] 160 mg PO DAILY #30 tab Nicotine 14Mg/24Hr Patch [Habitrol] 1 patch TRANSDERM DAILY #30 patch Continue Buprenorphine HCl [Subutex] 8 mg SL BID PARoxetine HCL [Paxil] 40 mg PO DAILY Famotidine [Pepcid] 20 mg PO DAILY Discharge Medication List Buprenorphine HCl [Subutex] 8 mg SL BID 01/02/18 [History] Famotidine [Pepcid] 20 mg PO DAILY 09/02/18 [History] PARoxetine HCL [Paxil] 40 mg PO DAILY 09/02/18 [History] Atorvastatin [Lipitor] 20 mg PO HS #30 tab 09/04/18 [Rx] Fenofibrate [Lofibra] 160 mg PO DAILY #30 tab 09/04/18 [Rx] Nicotine 14Mg/24Hr Patch [Habitrol] 1 patch TRANSDERM DAILY #30 patch 09/04/18 [Rx] Follow up Appointment(s)/Referral(s): Angel Ramirez MD [STAFF PHYSICIAN] - 10 Days (Spoke to [employer] job [employer]. Office w ill call with appointment time) Jewel Martin MD [REFERRING] - 1 Week Coral Velazquez MD [STAFF PHYSICIAN] - 1 Week (pain with bowel movements for years ) Gonzales Chamberlain MD [Primary Care Provider] - 09/11/18 9:00 am (Tuesday) Patient Instructions/Handouts: *Sur[facility] - After Heart Catheterization - [facility] Instructions, Left Heart Catheterization (DC) Activity/Diet/Wound Care/Special Instructions: regular diet activity is limited till you see your doctor
--- NOTE | 2018-09-04 19:28 | ECHOF ---
Referral Reason:routine MEASUREMENTS -------- HEIGHT: 180.3 cm WEIGHT: 93.4 kg BP: 110/70 IVSd: 1.1 cm (0.6 - 1.1) LVIDd: 5.0 cm (3.9 - 5.3) LVPWd: 1.1 cm (0.6 - 1.1) IVSs: 1.6 cm LVIDs: 3.5 cm LVPWs: 1.8 cm RVIDd: 2.7 cm (< 3.3) LAESV Index (A-L): 16.51 ml/m Ao Diam: 3.9 cm (2.0 - 3.7) LA Diam: 3.9 cm (2.7 - 3.8) AV Cusp: 2.5 cm (1.5 - 2.6) EPSS: 0.4 cm MV E Javier: 0.77 m/s MV DecT: 174 ms MV A Javier: 0.53 m/s MV E/A Ratio: 1.45 RAP: 5.00 mmHg RVSP: 35.62 mmHg MV EF SLOPE: 82.78 mm/s (70 - 150) MV EXCURSION: 1.62 cm (> 18.000) FINDINGS -------- Sinus rhythm. This was a technically adequate study. The left ventricular size is normal. There is mild concentric left ventricular hypertrophy. Overa ll left ventricular systolic function is normal with, an EF between 55 - 60 %. The right ventricle is normal in size. Left atrium is normal size by volume. The right atrial size is normal. Interatrial and interventricular septum intact. The aortic valve is trileaflet and appears structurally normal. The mitral valve is normal. Mild mitral regurgitation is present. Mild tricuspid regurgitation present. There is no evidence of pulmonary hypertension. The right v entricular systolic pressure, as measured by Doppler, is 35.62mmHg. Trace/mild (physiologic) pulmonic regurgitation. The aortic root size is normal. NOT VISUALIZED There is no pericardial effusion. CONCLUSIONS -------- 1. Sinus rhythm. 2. This was a technically adequate study. 3. The left ventricular size is normal. 4. There is mild concentric left ventricular hypertrophy. 5. Overall left ventricular systolic function is normal with, an EF between 55 - 60 %. 6. The right ventricle is normal in size. 7. Left atrium is normal size by volume. 8. The right atrial size is normal. 9. Interatrial and interventricular septum intact. 10. The aortic valve is trileaflet and appears structurally normal. 11. The mitral valve is normal. 12. Mild mitral regurgitation is present. 13. Mild tricuspid regurgitation present. 14. There is no evidence of pulmonary hypertension. 15. The right ventricular systolic pressure, as measured by Doppler, is 35.62mmHg. 16. Trace/mild (physiologic) pulmonic regurgitation. 17. The aortic root size is normal. 18. There is no pericardial effusion. NET MAKER: Mary Gómez RDCS
== END 2018-09-04 16:19 | disposition home or self-care (01) | DRG 287 ==
LOC: EC 16:10 → 3SCARD 16:49
PROVIDERS: ADMIT Hospitalist; ATTEND Hospitalist
PROC: B2111ZZ Fluoroscopy of Multiple Coronary Arteries using Low Osmolar Contrast (ICD-10-PCS; principal; 2018-09-02 17:22)
PROC: 4A023N7 Measurement of Cardiac Sampling and Pressure, Left Heart, Percutaneous Approach (ICD-10-PCS; principal; 2018-09-02 17:22)
PROC: B2151ZZ Fluoroscopy of Left Heart using Low Osmolar Contrast (ICD-10-PCS; principal; 2018-09-02 17:22)
DX: R07.9 Chest pain, unspecified (principal); E78.00 Pure hypercholesterolemia, unspecified; E78.1 Pure hyperglyceridemia; F17.210 Nicotine dependence, cigarettes, uncomplicated; F41.9 Anxiety disorder, unspecified; Z79.899 Other long term (current) drug therapy; Z82.49 Family history of ischemic heart disease and other diseases of the circulatory system; Z88.6 Allergy status to analgesic agent; Z88.5 Allergy status to narcotic agent; Z88.0 Allergy status to penicillin
CPT/HCPCS: 36415; 71045; 80048; 80053; 80061; 80306; 81003; 83690; 83735; 84484; 85025; 85379; 85610; 85652; 85730; 86140; 93005; 93306; 93458; 96365; 96372; 96375; 96376; 99291

== ENCOUNTER 2019-10-01 03:52 | Emergency (ER) | payer MEDICARE, OTHER ==
[2019-10-01] MEDS ORDERED: ONDANSETRON 4 MG/2 ML VIAL IVP STA (04:16)
[2019-10-01] MEDS ORDERED: SODIUM CHLORIDE 0.9% 1,000 ML IV ONE (04:16)
[2019-10-01 04:44] LABS: Basophils % (A) 0 %; Eosinophils # (A) 0.2 k/uL (0-0.7); Eosinophils % (A) 3 %; HCT 42.4 % (39.0-53.0); HGB 14.6 gm/dL (13.0-17.5); Lymphocytes % (A) 44 %; MCH 31.5 pg (25.0-35.0); MCHC 34.5 g/dL (31.0-37.0); MCV 91.4 fL (80.0-100.0); Mean Platelet Volume 7.2; Monocytes # (A) 0.3 k/uL (0-1.0); Monocytes % (A) 3 %; Neutrophils # (A) 4.4 k/uL (1.3-7.7); Neutrophils % (A) 49 %; Platelet Count 269 k/uL (150-450); RBC 4.64 m/uL (4.30-5.90); RDW 13.4 % (11.5-15.5); WBC 9.1 k/uL (3.8-10.6)
[2019-10-01 04:51] LABS: Appearance,Urine Clear (Clear); Bilirubin,Urine Negative (Negative); Blood,Urine Negative (Negative); Color,Urine Yellow; Glucose,Urine (UA) Negative (Negative); Ketones,Urine Negative (Negative); Leukocyte Esterase,Urine Negative (Negative); Nitrite,Urine Negative (Negative); PH, Urine 8.5 (5.0-8.0); Protein,Urine Trace (Negative); Specific Gravity,Urine 1.019 (1.001-1.035)
[2019-10-01 04:58] LABS: ALT 22 U/L (4-49); AST 26 U/L (17-59); African American GFR (CKD) >90 (>60 ml/min/1.73 sqM); Albumin 4.4 g/dL (3.5-5.0); Alkaline Phosphatase 75 U/L (38-126); Anion Gap 8 mmol/L; Blood Urea Nitrogen 15 mg/dL (9-20); C Reactive Protein 30.1 mg/L (<10.0); Calcium 9.3 mg/dL (8.4-10.2); Carbon Dioxide 26 mmol/L (22-30); Chloride 103 mmol/L (98-107); Glucose 111 mg/dL (74-99); Non-African American GFR(CKD) >90 (>60 ml/min/1.73 sqM); Potassium 3.8 mmol/L (3.5-5.1); Sodium 137 mmol/L (137-145); Total Bilirubin 0.5 mg/dL (0.2-1.3); Total Protein 7.2 g/dL (6.3-8.2)
[2019-10-01 05:10] VITALS: TEMP 98.1
--- NOTE | 2019-10-01 06:12 | ED ---
Weakness HPI - General Chief complaint: Weakness Stated complaint: Weakness Time Seen by Provider: 10/01/19 03:55 Source: patient, EMS Mode of arrival: EMS Limitations: no limitations - History of Present Illness Initial comments: This patient is a 39-year-old man who presents to the hospital with complaint that he is not feeling well. He states he has been having some generalized fatigue. He also has had nausea but no vomiting. No change in bowel movements. He states that it feels like he has a "flu" though he states he has never had the flu. Patient denies any specific focal pains. He has had some intermittent headaches but not worst headache of life. No neck pain or stiffness. He has not noted fever or chills. MD Complaint: generalized weakness, lack of energy -: days(s) Location: generalized Severity: moderate Consistency: constant Improves with: none Worsens with: none, exertion Associated Symptoms: nausea/vomiting - Related Data Home Medications Medication Instructions Recorded Confirmed Buprenorphine HCl [Subutex] 8 mg SL BID 01/02/18 09/02/18 Famotidine [Pepcid] 20 mg PO DAILY 09/02/18 09/02/18 PARoxetine HCL [Paxil] 40 mg PO DAILY 09/02/18 09/02/18 Previous Rx's Medication Instructions Recorded Atorvastatin [Lipitor] 20 mg PO HS #30 tab 09/04/18 Fenofibrate [Lofibra] 160 mg PO DAILY #30 tab 09/04/18 Nicotine 14Mg/24Hr Patch [Habitrol] 1 patch TRANSDERM DAILY #30 patch 09/04/18 Allergies Allergy/AdvReac Type Severity Reaction Status Date / Time ibuprofen [From Motrin] Allergy Rash/Hives Verified 09/02/18 16:56 Penicillins Allergy Unknown Verified 09/02/18 16:56 Childhood haloperidol [From Haldol] AdvReac Unknown Verified 09/02/18 16:56 Review of Systems ROS Statement: Those systems with pertinent positive or pertinent negative responses have been documented in the HPI. ROS Other: All systems not noted in ROS Statement are negative. Constitutional: Reports: weakness (generalized). Denies: fever, chills Eyes: Denies: vision change ENT: Denies: throat pain, congestion Respiratory: Denies: cough, dyspnea, wheezes Cardiovascular: Denies: chest pain, palpitations, orthopnea, edema Gastrointestinal: Denies: abdominal pain, vomiting, diarrhea Genitourinary: Denies: dysuria, hematuria Musculoskeletal: Denies: back pain, arthralgia Skin: Denies: rash Neurological: Reports: as per HPI, headache. Denies: weakness, numbness, paresthesias Past Medical History Past Medical History: No Reported History Additional Past Medical History / Comment(s): SBO History of Any Multi-Drug Resistant Organisms: None Reported Past Surgical History: Appendectomy, Orthopedic Surgery, Tonsillectomy Additional Past Surgical History / Comment(s): leg, Ex-Lap for SBO Past Psychological History: No Psychological Hx Reported Smoking Status: Current every day smoker Past Alcohol Use History: Occasional Past Drug Use History: Marijuana - Past Family History Father Family Medical History: Chest Pain / Angina Mother Family Medical History: No Reported History General Exam Limitations: no limitations General appearance: alert, in no apparent distress Head exam: Present: atraumatic, normocephalic Eye exam: Present: normal appearance. Absent: scleral icterus, conjunctival injection ENT exam: Present: normal oropharynx Neck exam: Present: normal inspection, full ROM. Absent: meningismus Respiratory exam: Present: normal lung sounds bilaterally. Absent: respiratory distress, wheezes, rales, rhonchi, stridor Cardiovascular Exam: Present: regular rate, normal rhythm, normal heart sounds. Absent: systolic murmur, diastolic murmur, rubs, gallop GI/Abdominal exam: Present: soft. Absent: distended, tenderness, guarding, rebound, rigid, mass Extremities exam: Present: normal inspection, normal capillary refill. Absent: pedal edema, calf tenderness Back exam: Present: normal inspection. Absent: CVA tenderness (R), CVA tenderness (L) Neurological exam: Present: alert Skin exam: Present: warm, dry, intact, normal color. Absent: rash Course Vital Signs 10/01/19 10/01/19 10/01/19 03:54 05:02 06:44 Temperature 98 F 98.1 F Pulse Rate 90 80 86 Respiratory 18 18 20 Rate Blood Pressure 154/81 117/87 131/83 O2 Sat by Pulse 96 99 97 Oximetry EKG Findings - EKG Comments: EKG Findings:: The patient has diffuse T inversions, these are present on the comparison EKG from August 2018. - EKG Results: EKG: interpreted by ERMD, sinus rhythm (Rate 92 bpm), normal axis, normal QRS Medical Decision Making - Lab Data Result diagrams: 10/01/19 04:35 10/01/19 04:35 Lab Results 10/01/19 10/01/19 10/01/19 Range/Units 04:35 04:35 04:35 WBC 9.1 (3.8-10.6) k/uL RBC 4.64 (4.30-5.90) m/uL Hgb 14.6 (13.0-17.5) gm/dL Hct 42.4 (39.0-53.0) % MCV 91.4 (80.0-100.0) fL MCH 31.5 (25.0-35.0) pg MCHC 34.5 (31.0-37.0) g/dL RDW 13.4 (11.5-15.5) % Plt Count 269 (150-450) k/uL Neutrophils % 49 % Lymphocytes % 44 % Monocytes % 3 % Eosinophils % 3 % Basophils % 0 % Neutrophils # 4.4 (1.3-7.7) k/uL Lymphocytes # 4.0 (1.0-4.8) k/uL Monocytes # 0.3 (0-1.0) k/uL Eosinophils # 0.2 (0-0.7) k/uL Basophils # 0.0 (0-0.2) k/uL Sodium 137 (137-145) mmol/L Potassium 3.8 (3.5-5.1) mmol/L Chloride 103 (98-107) mmol/L Carbon Dioxide 26 (22-30) mmol/L Anion Gap 8 mmol/L BUN 15 (9-20) mg/dL Creatinine 0.78 (0.66-1.25) mg/dL Est GFR (CKD-EPI)AfAm >90 (>60 ml/min/1.73 sqM) Est GFR (CKD-EPI)NonAf >90 (>60 ml/min/1.73 sqM) Glucose 111 H (74-99) mg/dL Calcium 9.3 (8.4-10.2) mg/dL Total Bilirubin 0.5 (0.2-1.3) mg/dL AST 26 (17-59) U/L ALT 22 (4-49) U/L Alkaline Phosphatase 75 (38-126) U/L Troponin I <0.012 (0.000-0.034) ng/mL C-Reactive Protein 30.1 H (<10.0) mg/L Total Protein 7.2 (6.3-8.2) g/dL Albumin 4.4 (3.5-5.0) g/dL Urine Color Urine Appearance (Clear) Urine pH (5.0-8.0) Ur Specific [place] (1.001-1.035) Urine Protein (Negative) Urine Glucose (UA) (Negative) Urine Ketones (Negative) Urine Blood (Negative) Urine Nitrite (Negative) Urine Bilirubin (Negative) Urine Urobilinogen (<2.0) mg/dL Ur Leukocyte Esterase (Negative) 10/01/19 Range/Units 04:45 WBC (3.8-10.6) k/uL RBC (4.30-5.90) m/uL Hgb (13.0-17.5) gm/dL Hct (39.0-53.0) % MCV (80.0-100.0) fL MCH (25.0-35.0) pg MCHC (31.0-37.0) g/dL RDW (11.5-15.5) % Plt Count (150-450) k/uL Neutrophils % % Lymphocytes % % Monocytes % % Eosinophils % % Basophils % % Neutrophils # (1.3-7.7) k/uL Lymphocytes # (1.0-4.8) k/uL Monocytes # (0-1.0) k/uL Eosinophils # (0-0.7) k/uL Basophils # (0-0.2) k/uL Sodium (137-145) mmol/L Potassium (3.5-5.1) mmol/L Chloride (98-107) mmol/L Carbon Dioxide (22-30) mmol/L Anion Gap mmol/L BUN (9-20) mg/dL Creatinine (0.66-1.25) mg/dL Est GFR (CKD-EPI)AfAm (>60 ml/min/1.73 sqM) Est GFR (CKD-EPI)NonAf (>60 ml/min/1.73 sqM) Glucose (74-99) mg/dL Calcium (8.4-10.2) mg/dL Total Bilirubin (0.2-1.3) mg/dL AST (17-59) U/L ALT (4-49) U/L Alkaline Phosphatase (38-126) U/L Troponin I (0.000-0.034) ng/mL C-Reactive Protein (<10.0) mg/L Total Protein (6.3-8.2) g/dL Albumin (3.5-5.0) g/dL Urine Color Yellow Urine Appearance Clear (Clear) Urine pH 8.5 H (5.0-8.0) Ur Specific [place] 1.019 (1.001-1.035) Urine Protein Trace H (Negative) Urine Glucose (UA) Negative (Negative) Urine Ketones Negative (Negative) Urine Blood Negative (Negative) Urine Nitrite Negative (Negative) Urine Bilirubin Negative (Negative) Urine Urobilinogen 2.0 (<2.0) mg/dL Ur Leukocyte Esterase Negative (Negative) Disposition Clinical Impression: Nausea Disposition: HOME SELF-CARE Condition: Fair Instructions (If sedation given, give patient instructions): Acute Nausea and Vomiting (ED) Is patient prescribed a controlled substance at d/c from ED?: No Referrals: None,Stated [Primary Care Provider] - 1-2 days Padma Raines MD [STAFF PHYSICIAN] - 1-2 days
[2019-10-01 07:33] VITALS: BP 132/79; PULSE 89; RESP 16
== END 2019-10-01 07:30 | disposition home or self-care (01) ==
LOC: EC 03:52
DX: R11.0 Nausea (principal); R53.83 Other fatigue; R51 Headache; F17.200 Nicotine dependence, unspecified, uncomplicated; Z88.0 Allergy status to penicillin; Z88.6 Allergy status to analgesic agent; Z88.8 Allergy status to other drugs, medicaments and biological substances; Z20.828 Contact with and (suspected) exposure to other viral communicable diseases
CPT/HCPCS: 36415; 93005; 80053; 84484; 85025; 86140; 81003; 99285; 96374; 96361; U0003; J2405